=== PATIENT | male | born 1950 | race Caucasian/White ===

== ENCOUNTER 2022-12-09 05:27 | Day surgery (SDC) | payer OTHER ==
[2022-11-29 14:30] LABS: BASOPHILS # (AUTO) 0.1 X10'3 (0-0.2); EOSINOPHILS # (AUTO) 0.1 X10'3 (0-0.9); EOSINOPHILS % (AUTO) 1.9 % (0-6); LYMPHOCYTES # (AUTO) 2.3 X10'3 (1.1-4.8); LYMPHOCYTES % (AUTO) 34.3 % (21-51); MEAN CORPUSCULAR HEMOGLOBIN 31.4 PG (27.0-31.0); MEAN CORPUSCULAR HGB CONC 34.2 g/dL (33.0-36.5); MEAN CORPUSCULAR VOLUME 91.8 FL (78-98); MEAN PLATELET VOLUME 7.7 FL (7.4-10.4); MONOCYTES # (AUTO) 0.7 X10'3 (0-0.9); MONOCYTES % (AUTO) 10.5 % (2-12); NEUTROPHILS # (AUTO) 3.5 X10'3 (1.8-7.7); NEUTROPHILS % (AUTO) 52.3 % (42-75); PRE OP HEMATOCRIT 45.1 % (42.0-52.0); PRE OP HEMOGLOBIN 15.4 g/dL (14.0-17.9); PRE OP PLATELET COUNT 247 X10'3 (140-440); RED BLOOD COUNT 4.92 X10'6 (4.70-6.10); RED CELL DISTRIBUTION WIDTH 13.1 % (11.5-14.5)
[2022-11-29 14:47] LABS: ALBUMIN 4.1 G/DL (3.4-5.0); ALBUMIN/GLOBULIN RATIO 1.2 (1.1-1.5); ALKALINE PHOSPHATASE 116 IU/L (46-116); BLOOD UREA NITROGEN 18 MG/DL (7-18); BUN/CREATININE RATIO 12.9 (5.4-32.0); CALCIUM 8.9 MG/DL (8.5-10.1); CHLORIDE 104 MMOL/L (99-107); CREATININE 1.39 MG/DL (0.60-1.10); PRE OP ALT 20 U/L (30-65); PRE OP ANION GAP 7 (8-16); PRE OP AST 19 U/L (10-37); PRE OP BILIRUB, TOTAL 0.4 MG/DL (0.0-1.0); PRE OP GLUCOSE 97 MG/DL (70-104); PRE OP POTASSIUM 4.2 MMOL/L (3.4-5.1); PRE OP SODIUM 138 MMOL/L (135-145); TOTAL CARBON DIOXIDE 27.2 MMOL/L (24-32); TOTAL PROTEIN 7.6 G/DL (6.4-8.2); eGFR 50 ML/MIN
[~2022-12-09] VITALS: Ht 182.9 cm; Wt 103.0 kg
[2022-12-09] VITALS (10 sets, daily range): BP systolic 108–134; BP diastolic 59–73
[~2022-12-09 05:27] MED LIST: ALLO100T PO; CHOL100017 PO; CYAN500T71 PO; FLO0.4C PO; MONT10TA21 PO; OMEP40CA21 PO; SERT25TA PO; ringers solution, lacted 1,000 ML IV SCH
[2022-12-09] MEDS ORDERED: ceFAZolin inj. 2,000 MG in dextrose 5%-water 100 ML IV ONE (05:30)
[2022-12-09] MEDS ORDERED: famotidine 20mg tablet PO ONE (05:30)
[2022-12-09] MEDS ORDERED: bacitracin 15gm ointment TP ONE ×2 (07:15→07:57)
[2022-12-09] MEDS ORDERED: BUPIVAcaine 0.5% inj/PF 30 ML ONE ×2 (07:15→07:46)
[2022-12-09] MEDS ORDERED: sevoflurane 250ml liquid IH ONE (07:16)
[2022-12-09] MEDS ORDERED: midazolam 1 mg/ML 2ml injection ONE (07:22)
[2022-12-09] MEDS ORDERED: fentaNYL /PF 50mcg/ml 5ml ampule ONE (07:24)
[2022-12-09] MEDS ORDERED: BUPIVAcaine 0.5% inj/PF 30 ml vial IJ ONE ×2 (07:53→09:16)
[2022-12-09] MEDS ORDERED: ePHEDrine 50MG/ML INJ. ONE (08:19)
[2022-12-09] MEDS ORDERED: LIDOcaine 2% (20mg/ml) 5ml vial ONE (08:19)
[2022-12-09] MEDS ORDERED: propofol inj 20 ML IV ONE (08:19)
[2022-12-09] MEDS ORDERED: ondansetron/PF 4mg/2ml inj ONE (08:20)
[2022-12-09] MEDS ORDERED: dexamethasone sod phosphate 4mg/ml inj. ONE (08:20)
[2022-12-09] MEDS ORDERED: glycopyrrolate 0.2mg/ml inj ONE (08:20)
[2022-12-09] MEDS ORDERED: ringers solution, lacted 1,000 ML IV SCH (08:40)
[2022-12-09] MEDS ORDERED: hydrALAZINE 20mg/ml inj. IV PRN (08:40)
[2022-12-09] MEDS ORDERED: HYDROmorphone/PF 0.2 MG/ML SYRINGE IV PRN ×2 (08:40)
[2022-12-09] MEDS ORDERED: acetaminophen 1,000mg/100ml IV 100 ML IV PRN (08:40)
[2022-12-09] MEDS ORDERED: ondansetron/PF 4mg/2ml inj IV PRN (08:40)
[2022-12-09] MEDS ORDERED: labetalol 20mg/4ml (5mg/ml) syringe IV PRN (08:40)
[2022-12-09] MEDS ORDERED: meperidine/PF 25mg/ml syringe IV PRN (08:40)
[2022-12-09] MEDS ORDERED: proCHLORperazine 10 MG/2 ml inj IV PRN (08:40)
[2022-12-09] MEDS ORDERED: fentaNYL/PF 50MCG/1 ML 2ML syringe IV PRN ×2 (08:40)
[2022-12-09] MEDS ORDERED: ketorolac trometh. 30mg/ml inj. IV ONE (08:40)
--- NOTE | 2022-12-09 09:34 | NUR ---
Received from OR via stretcher, accompanied by Anesthesiologist and report given by Anesthesiologist. PATIENT WAKING UP, NO S/S OF PAIN, V/S WNL, 20G TO RUE NO S/S OF COMPLICATIONS, TOES ARE PINK WARM AND DRY, BOOT PARTIALLY REMOVED BY SURGEON, cms GOOD, BOOT REAPPLIED BY SURGEON
--- NOTE | 2022-12-09 10:44 | NUR ---
PT ASSISTED GETTING DRESSED, , BROUGHT DIFFERENT CLOTHES THAT ARE EASY TO GET ON AND OFF FROM HOME. IV D/MALGORZATA WITH CATHETER INTACT. PT TAKEN VIA WHEELCHAIR TO FRONT LOBBY DRIVE. PT DRIVEN HOME BY IN STABLE CONDITION
== END 2022-12-09 10:44 | disposition home or self-care (01) ==
LOC: PAS 05:27
PROVIDERS: ATTEND Podiatrist Foot & Ankle Surgery
DX: M20.12 Hallux valgus (acquired), left foot (principal); M21.6X2 Other acquired deformities of left foot; M20.42 Other hammer toe(s) (acquired), left foot; M19.071 Primary osteoarthritis, right ankle and foot; M19.072 Primary osteoarthritis, left ankle and foot; M18.12 Unilateral primary osteoarthritis of first carpometacarpal joint, left hand; F41.9 Anxiety disorder, unspecified; F32.A Depression, unspecified; F43.10 Post-traumatic stress disorder, unspecified; M10.9 Gout, unspecified; Z79.899 Other long term (current) drug therapy; Z88.5 Allergy status to narcotic agent; Z98.890 Other specified postprocedural states; Z87.891 Personal history of nicotine dependence; Z85.46 Personal history of malignant neoplasm of prostate
CPT/HCPCS: 28270; 28285; 28750; 36415; 73620; 76000; 80053; 82948; 85025; A6223; C1713; J0690; J1100; J2250; J2405; J2704; J3010; J3490; J7030; J7060; J7120; L4360; S0020; Z7506; Z7508; Z7512; A4215; A4615; A4618; A6449; A7000

== ENCOUNTER 2022-12-17 18:31 | Emergency (ER) | payer OTHER ==
[~2022-12-17] VITALS: Ht 182.9 cm; Wt 102.3 kg
[~2022-12-17 18:31] MED LIST changes: -ringers solution, lacted 1,000 ML IV SCH
[2022-12-17 18:37] VITALS: BP 129/78
== END 2022-12-17 22:00 | disposition left against medical advice (07) ==
LOC: ER 18:32
DX: Z00.00 Encounter for general adult medical examination without abnormal findings (principal); Z53.21 Procedure and treatment not carried out due to patient leaving prior to being seen by health care provider

== ENCOUNTER 2023-01-14 10:28 | Emergency (ER) | payer OTHER, MEDICARE ==
[~2023-01-14] VITALS: Ht 182.9 cm; Wt 104.5 kg
[~2023-01-14 10:28] MED LIST changes: +MONT-47 PO; -MONT10TA21 PO
[2023-01-14 12:37] VITALS: BP 109/65
== END 2023-01-14 14:31 | disposition home or self-care (01) ==
LOC: ER 10:29
DX: T81.9XXA Unspecified complication of procedure, initial encounter (principal); Z88.5 Allergy status to narcotic agent; Z79.899 Other long term (current) drug therapy
CPT/HCPCS: 73630; 99284; A6402; A6449

== ENCOUNTER 2023-01-18 16:54 | Emergency (ER) | payer OTHER, MEDICARE ==
[~2023-01-18] VITALS: Ht 182.9 cm; Wt 102.3 kg
[2023-01-18 20:47] VITALS: BP 113/66
== END 2023-01-19 02:27 | disposition left against medical advice (07) ==
LOC: ER 16:55
DX: M79.89 Other specified soft tissue disorders (principal); Z53.21 Procedure and treatment not carried out due to patient leaving prior to being seen by health care provider
CPT/HCPCS: 99281

== ENCOUNTER 2024-07-26 19:00 | Emergency (ER) | payer OTHER, MEDICARE ==
[~2024-07-26] VITALS: Ht 182.9 cm; Wt 95.5 kg
[2024-07-26] MEDS: HYDROcodone/acetaminophen 10/325mg tab PO ONE (20:54)
[2024-07-26] MEDS: ondansetron 4mg rapidly disintigrating tab PO ONE (20:54)
[2024-07-26] MEDS ORDERED: HYDR-3972 PO (21:33)
[2024-07-26] MEDS ORDERED: AMOX-580 PO (21:33)
[2024-07-26 21:40] VITALS: BP 106/71; PULSE 88; RESP 17; TEMP 98.4; O2SAT 99
== END 2024-07-26 21:41 | disposition home or self-care (01) ==
LOC: ER 19:01
DX: S61.250A Open bite of right index finger without damage to nail, initial encounter (principal); Z88.8 Allergy status to other drugs, medicaments and biological substances; Z79.899 Other long term (current) drug therapy; Z79.1 Long term (current) use of non-steroidal anti-inflammatories (NSAID); W54.0XXA Bitten by dog, initial encounter; Y93.89 Activity, other specified; Y92.89 Other specified places as the place of occurrence of the external cause; Y99.8 Other external cause status
CPT/HCPCS: 12002; 73130; 99283; A6258; A6449

== ENCOUNTER 2025-05-19 09:41 | Emergency (ER) | payer OTHER, MEDICARE ==
[~2025-05-19] VITALS: Ht 182.9 cm; Wt 98.2 kg
[~2025-05-19 09:41] MED LIST changes: -FLO0.4C PO; +TAMS-55 PO
[2025-05-19] MEDS: LIDOcaine 1% 30ml preserv. free vial SQ STA (10:09)
--- NOTE | 2025-05-19 10:22 | Physician Documentation ---
History of Present Illness ~ Chief Complaint: Foreign body Stated Complaint: FO IN FINGER Time Seen by MD: 09:55 Primary Medical Doctor: LUIS VALENTINE 74-year-old male presents to the ED with a complaint of left ring finger pain. She had a splint your of them for in his distal aspect in his finger unable to get it out increased pain and swelling. Just happened proximally 20 30 minutes ago Medication Reconciliation Allergies: Coded Allergies: morphine (Verified Allergy, Unknown, VISUAL DISTURBANCE, 01/18/23) Scheduled Allopurinol* (Allopurinol*), 1 TAB PO DAILY, (Reported) Cholecalciferol (Vitamin D3) (Vitamin D3), 1 TAB PO TID, (Reported) Cyanocobalamin* (Vitamin B-12*), 2 TAB PO DAILY, (Reported) Montelukast Sodium (Singulair), 1 TAB PO DAILY, (Reported) Omeprazole (Prilosec), 0.5 CAP PO DAILY, (Reported) Sertraline Hcl* (Zoloft*), 4 TAB PO DAILY, (Reported) Tamsulosin Hcl* (Flomax*), 1 CAP PO BID, (Reported) Past Medical History Past Medical History: No Pertinent History Past Surgical History: noncontributory Lives In: Home Occupation: retired Review of Systems All Other Systems at this time: Reviewed and Negative Physical Exam Vital Signs: Temperature: 96.9, Source: Oral, Heart Rate: 77, Respiratory Rate: 18, BP: 124/97, Pulse Oximetry: 98, Weight: 98.200 Physical Exam General: Alert, no apparent distress. HEENT: PERRL, EOMI, no injection, moist mucous membranes. Extremities: Normal range of motion, splinter in place left ring finger, distal aspect Neurologic: Oriented x4. Psychiatric: Normal mood and affect. Skin: Normal color, warm and dry. No edema, no ecchymosis. Procedures I&D Procedure : Anesthesia: Lidocaine Tolerated Procedure Well?: yes, no complications Procedure Note Removed splinter Progress Results/Orders Results/Orders Completed Orders - SARKIS JOHNSON HAM STRINGER Lidocaine 1% 30ml Vial (Xylocaine 1% Via (05/19/25 10:00) Vital Signs 05/19/25 05/19/25 09:43 10:35 Temp 96.9 96.9 Pulse 77 79 Resp 18 17 B/P (MAP) 124/97 104/62 Pulse Ox 98 99 Medical Decision Making Findings was able to remove splinter after lidocaine injection. Hemostats were used to remove FB. pt tolerated well. Departure Disposition: HOME / SELF CARE / HOMELESS Impression: Primary Impression: Splinter Referrals: NO PRIMARY CARE PROVIDER (PCP) Education Educated: Patient Signature Scribe Signature: f Attestation: Scribed for Sarkis Johnson Ring Rolling Machine Operator by Sarkis Nava NP . 05/19/25 18:15 SARKIS JOHNSON NP May 19, 2025 10:22
[2025-05-19 10:35] VITALS: BP 104/62; PULSE 79; RESP 17; TEMP 96.9; O2SAT 99
== END 2025-05-19 10:37 | disposition home or self-care (01) ==
LOC: ER 09:41
DX: S60.455A Superficial foreign body of left ring finger, initial encounter (principal); Z88.5 Allergy status to narcotic agent; X58.XXXA Exposure to other specified factors, initial encounter; Y93.89 Activity, other specified; Y92.89 Other specified places as the place of occurrence of the external cause; Y99.8 Other external cause status
CPT/HCPCS: 99284; A6258